=== PATIENT | male | born 1940 | race Caucasian/White ===

== ENCOUNTER 2018-03-21 01:02 | Inpatient (IN) | payer OTHER ==
[2018-03-21] VITALS (8 sets, daily range): BP systolic 124–150
[~2018-03-21] VITALS: Ht 177.8 cm; Wt 103.0 kg
[2018-03-21] MEDS ORDERED: NACL 0.9% 1,000 ML IV ONE (02:38)
[2018-03-21] MEDS ORDERED: DIPHENHYDRAMINE INJ 50 MG/ML VIAL IVP ONE (02:45)
[2018-03-21] MEDS ORDERED: MORPHINE 4 MG/ML INJ. SYRINGE IVP ONE (02:45)
[2018-03-21] MEDS ORDERED: ONDANSETRON HCL 4 MG/2 ML VIAL IVP ONE (02:45)
[2018-03-21 03:11] LABS: BASOPHILS % (AUTO) 0.2 % (0.0-2.0); HEMATOCRIT 37.8 % (36-54); HEMOGLOBIN 12.7 g/dL (14.0-18.0); LYMPHOCYTES # (AUTO) 0.8 K/uL (1.0-5.5); LYMPHOCYTES % (AUTO) 4.2 % (20.5-51.5); MEAN CORPUSCULAR HEMOGLOBIN 33 pg (27-31); MEAN CORPUSCULAR HGB CONC 34 % (32-36); MEAN CORPUSCULAR VOLUME 98 fL (79.0-98.0); MONOCYTES # (AUTO) 1.6 K/uL (0.0-1.0); MONOCYTES % (AUTO) 8.6 % (1.7-9.3); NEUTROPHILS # (AUTO) 16.2 K/uL (1.8-7.7); PLATELET COUNT (AUTO) 135 K/uL (130-430); RED BLOOD CELL COUNT(AUTO) 3.87 MIL/uL (4.2-6.2); RED CELL DISTRIBUTION WIDTH 14.6 % (9.0-15.0); WHITE BLOOD COUNT (AUTO) 18.6 K/uL (4.8-10.8)
[2018-03-21 03:20] LABS: INR 1.2 (0.80-1.20)
[2018-03-21 03:28] LABS: ANION GAP 8 (5-15); CALCIUM 8.3 mg/dL (8.4-11.0); CHLORIDE 101 mmol/L (98-107); GLUCOSE 168 mg/dL (70-99); POTASSIUM 3.6 mmol/L (3.5-5.1); SODIUM SERUM 137 mmol/L (136-145); UREA NITROGEN, BLOOD 14 mg/dL (8-21)
[2018-03-21 03:33] LABS: ALANINE AMINOTRANSFERASE 19 U/L (12-78); ALBUMIN 3.5 g/dL (3.4-4.8); ASPARTATE AMINOTRANSFERASE 13 U/L (10-37); TOTAL BILIRUBIN 0.7 mg/dL (0.0-1.0)
[2018-03-21] MEDS ORDERED: MAGN400T10 PO (04:56)
[2018-03-21] MEDS ORDERED: METF-305 PO (04:56)
[2018-03-21] MEDS ORDERED: FOLI-43 PO (04:56)
[2018-03-21] MEDS ORDERED: LIP40 PO (04:56)
[2018-03-21] MEDS ORDERED: TAMS-11 PO (04:56)
[2018-03-21] MEDS ORDERED: LATA2.5D6 OP (04:56)
[2018-03-21] MEDS ORDERED: PLA200 PO (04:56)
[2018-03-21] MEDS ORDERED: APIX5TAB PO (04:56)
[2018-03-21] MEDS ORDERED: CARV25TA55 PO (04:56)
[2018-03-21] MEDS ORDERED: OMEP20CA10 PO (04:56)
[2018-03-21] MEDS ORDERED: AMLO2.5T2 PO (04:56)
[2018-03-21] MEDS ORDERED: METH2.5T PO (04:56)
[2018-03-21] MEDS ORDERED: LISI40TA4 PO (04:56)
[2018-03-21] MEDS ORDERED: ISOS30TA6 PO (04:56)
[2018-03-21] MEDS ORDERED: DORZ10DR8 OP (04:56)
[2018-03-21 05:12] LABS: BILIRUBIN,URINE 1+ (NEGATIVE); CLARITY/URINE CLEAR (CLEAR); COLOR,URINE YELLOW (YELLOW); GLUCOSE,URINE NEGATIVE (NEGATIVE); KETONES,URINE NEGATIVE (NEGATIVE); LEUKOCYTE ESTERASE ,URINE 1+ (NEGATIVE); NITRITE, URINE NEGATIVE (NEGATIVE); PH,URINE 5.5 (5.0-8.0); PROTEIN URINE 1+ (NEGATIVE); UROBILINOGEN,URINE 0.2 (0.2-1.0)
[2018-03-21 05:13] LABS: BLOOD, URINE TRACE (NEGATIVE)
[2018-03-21 05:28] LABS: BACTERIA,URINE MODERATE /HPF (None Seen); MUCUS,URINE 1+ /LPF (None Seen); WBC,URINE 20-50 /HPF (0-3)
[2018-03-21] MEDS ORDERED: MORPHINE 2 MG/ML INJ. SYRINGE IVP ONE (06:15)
[2018-03-21] MEDS ORDERED: ONDANSETRON HCL 4 MG/2 ML VIAL IVP PRN (06:45)
[2018-03-21] MEDS ORDERED: D5W 1,000 ML IV PRN (06:53)
[2018-03-21] MEDS ORDERED: GLUCOSE 15 GM GEL (in 37.5 GM TUBE) PO PRN ×2 (07:00)
[2018-03-21] MEDS ORDERED: DEXTROSE 50% JECT 50 ML DISP.SYRIN IVP PRN ×2 (07:00)
[2018-03-21] MEDS ORDERED: INSULIN REGULAR, HUMAN 100 UNITS/ML, 10 ML VIAL (novoLIN R) SUBCUT PRN (07:00)
[2018-03-21] MEDS ORDERED: metroNIDAZOLE 500 mg/NS 100 ML IV ONE (07:32)
[2018-03-21] MEDS: cefTRIAXone 1 GM IVPB PREMIX 50 ML IV SCH (09:06)
[2018-03-21] MEDS: NACL 0.9% 1,000 ML IV SCH ×2 (09:09→23:35)
[2018-03-21] MEDS ORDERED: DIATR MEGLU/DIATRIZ SOD 30 ML SOLUTION PO ONE (11:30)
[2018-03-21 11:58] LABS: BASOPHILS # (AUTO) 0.1 K/uL (0.0-0.2); BASOPHILS % (AUTO) 0.4 % (0.0-2.0); EOSINOPHILS % (AUTO) 0.1 % (0.0-4.0); HEMATOCRIT 36.2 % (36-54); HEMOGLOBIN 12.3 g/dL (14.0-18.0); LYMPHOCYTES # (AUTO) 0.8 K/uL (1.0-5.5); LYMPHOCYTES % (AUTO) 4.3 % (20.5-51.5); MEAN CORPUSCULAR HEMOGLOBIN 34 pg (27-31); MEAN CORPUSCULAR HGB CONC 34 % (32-36); MEAN CORPUSCULAR VOLUME 98 fL (79.0-98.0); MONOCYTES # (AUTO) 1.2 K/uL (0.0-1.0); MONOCYTES % (AUTO) 6.2 % (1.7-9.3); NEUTROPHILS # (AUTO) 17.4 K/uL (1.8-7.7); PLATELET COUNT (AUTO) 118 K/uL (130-430); RED BLOOD CELL COUNT(AUTO) 3.68 MIL/uL (4.2-6.2); RED CELL DISTRIBUTION WIDTH 14.8 % (9.0-15.0); WHITE BLOOD COUNT (AUTO) 19.5 K/uL (4.8-10.8)
[2018-03-21 12:09] LABS: ALANINE AMINOTRANSFERASE 15 U/L (12-78); ALBUMIN 3.2 g/dL (3.4-4.8); ANION GAP 9 (5-15); ASPARTATE AMINOTRANSFERASE 12 U/L (10-37); CHLORIDE 101 mmol/L (98-107); CREATININE 1.19 mg/dL (0.55-1.30); GLUCOSE 161 mg/dL (70-99); LIPASE 93 U/L (73-393); SODIUM SERUM 137 mmol/L (136-145); TOTAL BILIRUBIN 0.7 mg/dL (0.0-1.0); UREA NITROGEN, BLOOD 12 mg/dL (8-21)
[2018-03-21] MEDS ORDERED: IOHEXOL 100 ML IV ONE (13:33)
[2018-03-21] MEDS: metroNIDAZOLE 500 mg/NS 100 ML IV SCH ×2 (15:42→21:36)
[2018-03-21] MEDS: MORPHINE 2 MG/ML INJ. SYRINGE IVP PRN ×2 (17:19→21:45)
[2018-03-21] MEDS: VANCOMYCIN HCL 125 MG CAPSULE PO SCH ×2 (17:24→21:43)
[2018-03-21] MEDS: HYDROXYCHLOROQUINE SULFATE 200 MG TABLET PO SCH (21:32)
[2018-03-21] MEDS: CARVEDILOL 25 MG TABLET (COREG) PO SCH (21:33)
[2018-03-21] MEDS: ATORVASTATIN 20 MG TABLET PO SCH (21:33)
[2018-03-21] MEDS: LATANOPROST 2.5 ML DROPS (XALATAN) OP SCH (21:34)
[2018-03-21] MEDS: DORZOLAMIDE 2% OPHTHALMIC SOLN 5ML OP SCH (21:35)
[2018-03-22] VITALS (7 sets, daily range): BP systolic 105–142
[2018-03-22] MEDS: MORPHINE 2 MG/ML INJ. SYRINGE IVP PRN ×3 (03:01→18:15)
[2018-03-22] MEDS: metroNIDAZOLE 500 mg/NS 100 ML IV SCH ×3 (05:23→21:12)
[2018-03-22 06:59] LABS: ALANINE AMINOTRANSFERASE 14 U/L (12-78); ALBUMIN 2.8 g/dL (3.4-4.8); ANION GAP 7 (5-15); ASPARTATE AMINOTRANSFERASE 12 U/L (10-37); CALCIUM 7.7 mg/dL (8.4-11.0); CHLORIDE 100 mmol/L (98-107); GLUCOSE 130 mg/dL (70-99); POTASSIUM 3.4 mmol/L (3.5-5.1); SODIUM SERUM 134 mmol/L (136-145); TOTAL BILIRUBIN 0.8 mg/dL (0.0-1.0); UREA NITROGEN, BLOOD 10 mg/dL (8-21)
[2018-03-22] MEDS ORDERED: POTASSIUM CHLORIDE 20 MEQ/PKT PACKET PO ONE (07:30)
[2018-03-22 07:32] LABS: BASOPHILS % (AUTO) 0.1 % (0.0-2.0); EOSINOPHILS % (AUTO) 0.2 % (0.0-4.0); HEMATOCRIT 34.3 % (36-54); HEMOGLOBIN 11.7 g/dL (14.0-18.0); LYMPHOCYTES # (AUTO) 0.7 K/uL (1.0-5.5); LYMPHOCYTES % (AUTO) 4.3 % (20.5-51.5); MEAN CORPUSCULAR HEMOGLOBIN 34 pg (27-31); MEAN CORPUSCULAR HGB CONC 34 % (32-36); MEAN CORPUSCULAR VOLUME 99 fL (79.0-98.0); MONOCYTES # (AUTO) 1.5 K/uL (0.0-1.0); MONOCYTES % (AUTO) 8.9 % (1.7-9.3); NEUTROPHILS % (AUTO) 86.5 % (40.0-70.0); RED BLOOD CELL COUNT(AUTO) 3.47 MIL/uL (4.2-6.2); RED CELL DISTRIBUTION WIDTH 15.4 % (9.0-15.0); WHITE BLOOD COUNT (AUTO) 17.2 K/uL (4.8-10.8)
[2018-03-22] MEDS: cefTRIAXone 1 GM IVPB PREMIX 50 ML IV SCH (09:02)
[2018-03-22] MEDS: VANCOMYCIN HCL 125 MG CAPSULE PO SCH ×4 (09:02→20:46)
[2018-03-22] MEDS: FOLIC ACID 1 MG TABLET PO SCH (09:02)
[2018-03-22] MEDS: amLODIPine BESYLATE 5 MG TABLET PO SCH (09:03)
[2018-03-22] MEDS: OMEPRAZOLE 20 MG CAPSULE.DR (PriLOSEC) PO SCH (09:03)
[2018-03-22] MEDS: HYDROXYCHLOROQUINE SULFATE 200 MG TABLET PO SCH ×2 (09:03→20:46)
[2018-03-22] MEDS: ISOSORBIDE MONONITRATE 30 MG TAB.ER.24H PO SCH (09:03)
[2018-03-22] MEDS: CARVEDILOL 25 MG TABLET (COREG) PO SCH ×2 (09:04→20:48)
[2018-03-22] MEDS: MAGNESIUM OXIDE 400 MG TABLET PO SCH (09:04)
[2018-03-22] MEDS: LISINOPRIL 20 MG TABLET PO SCH (09:04)
[2018-03-22] MEDS: DORZOLAMIDE 2% OPHTHALMIC SOLN 5ML OP SCH ×2 (09:06→20:47)
[2018-03-22] MEDS: NACL 0.9% 1,000 ML IV SCH ×2 (09:09→21:13)
[2018-03-22 10:15] LABS: PLATELET COUNT (AUTO) 96 K/uL (130-430)
[2018-03-22] MEDS: ACETAMINOPHEN 325 MG TABLET PO PRN ×2 (11:35→21:11)
[2018-03-22] MEDS: ATORVASTATIN 20 MG TABLET PO SCH (20:46)
[2018-03-22] MEDS: LATANOPROST 2.5 ML DROPS (XALATAN) OP SCH (20:47)
[2018-03-22] MEDS ORDERED: MORPHINE 4 MG/ML INJ. SYRINGE IVP ONE (21:30)
[2018-03-23] MEDS: metroNIDAZOLE 500 mg/NS 100 ML IV SCH (06:26)
[2018-03-23 06:34] LABS: HEMATOCRIT 34.1 % (36-54); HEMOGLOBIN 11.6 g/dL (14.0-18.0); MEAN CORPUSCULAR HEMOGLOBIN 33 pg (27-31); MEAN CORPUSCULAR HGB CONC 34 % (32-36); MEAN CORPUSCULAR VOLUME 98 fL (79.0-98.0); PLATELET COUNT (AUTO) 96 K/uL (130-430); RED BLOOD CELL COUNT(AUTO) 3.48 MIL/uL (4.2-6.2); RED CELL DISTRIBUTION WIDTH 14.9 % (9.0-15.0); WHITE BLOOD COUNT (AUTO) 10.9 K/uL (4.8-10.8)
[2018-03-23] MEDS: MORPHINE 2 MG/ML INJ. SYRINGE IVP PRN ×2 (06:42→13:10)
[2018-03-23 06:56] LABS: ALANINE AMINOTRANSFERASE 16 U/L (12-78); ALBUMIN 2.8 g/dL (3.4-4.8); ANION GAP 5 (5-15); ASPARTATE AMINOTRANSFERASE 14 U/L (10-37); CALCIUM 7.8 mg/dL (8.4-11.0); CHLORIDE 104 mmol/L (98-107); CREATININE 1.02 mg/dL (0.55-1.30); GLUCOSE 159 mg/dL (70-99); POTASSIUM 4.1 mmol/L (3.5-5.1); SODIUM SERUM 137 mmol/L (136-145); TOTAL BILIRUBIN 0.7 mg/dL (0.0-1.0); UREA NITROGEN, BLOOD 11 mg/dL (8-21)
[2018-03-23 07:51] VITALS: BP_SYST 155
[2018-03-23] MEDS ORDERED: MORPHINE 4 MG/ML INJ. SYRINGE IVP ONE (08:00)
[2018-03-23] MEDS: HYDROXYCHLOROQUINE SULFATE 200 MG TABLET PO SCH ×2 (08:53→22:02)
[2018-03-23] MEDS: CARVEDILOL 25 MG TABLET (COREG) PO SCH ×2 (08:53→22:02)
[2018-03-23] MEDS: OMEPRAZOLE 20 MG CAPSULE.DR (PriLOSEC) PO SCH (08:54)
[2018-03-23] MEDS: ISOSORBIDE MONONITRATE 30 MG TAB.ER.24H PO SCH (08:54)
[2018-03-23] MEDS: LISINOPRIL 20 MG TABLET PO SCH (08:54)
[2018-03-23] MEDS: MAGNESIUM OXIDE 400 MG TABLET PO SCH (08:55)
[2018-03-23] MEDS: amLODIPine BESYLATE 5 MG TABLET PO SCH (08:55)
[2018-03-23] MEDS: FOLIC ACID 1 MG TABLET PO SCH (08:55)
[2018-03-23] MEDS: DORZOLAMIDE 2% OPHTHALMIC SOLN 5ML OP SCH ×2 (08:56→22:03)
[2018-03-23] MEDS: cefTRIAXone 1 GM IVPB PREMIX 50 ML IV SCH (08:57)
[2018-03-23] MEDS: VANCOMYCIN HCL 125 MG CAPSULE PO SCH (09:07)
[2018-03-23] MEDS: POLYETHYLENE GLYCOL 3350, 17 GM/ POWD.PACK PO SCH (09:07)
[2018-03-23] MEDS ORDERED: MORPHINE 4 MG/ML INJ. SYRINGE IVP PRN ×2 (10:45→11:00)
[2018-03-23] MEDS: ALBUTEROL SULFATE 0.083% 2.5 MG/3 ML VIAL.NEB INH PRN (11:21)
[2018-03-23] MEDS: NACL 0.9% 1,000 ML IV SCH (12:04)
[2018-03-23 12:21] VITALS: BP_SYST 139
[2018-03-23 12:55] LABS: BAND % (MANUAL) 1 % (0-6); BASOPHILS % (MANUAL) 0 % (0-2); EOSINOPHILS % (MANUAL) 0 % (0-7); LYMPHOCYTES % (MANUAL) 2 % (20-46); MONOCYTES % (MANUAL) 6 % (0-11)
[2018-03-23] MEDS: metroNIDAZOLE 500 MG TABLET PO SCH ×2 (13:49→22:02)
[2018-03-23 17:07] VITALS: BP_SYST 147
[2018-03-23 19:47] VITALS: BP_SYST 148
[2018-03-23] MEDS: ATORVASTATIN 20 MG TABLET PO SCH (22:02)
[2018-03-23] MEDS: LATANOPROST 2.5 ML DROPS (XALATAN) OP SCH (22:03)
[2018-03-24 00:13] VITALS: BP_SYST 145
[2018-03-24] MEDS: NACL 0.9% 1,000 ML IV SCH (01:24)
[2018-03-24] MEDS: MORPHINE 2 MG/ML INJ. SYRINGE IVP PRN (02:25)
[2018-03-24] MEDS: metroNIDAZOLE 500 MG TABLET PO SCH (06:30)
[2018-03-24] MEDS: POLYETHYLENE GLYCOL 3350, 17 GM/ POWD.PACK PO SCH (08:40)
[2018-03-24] MEDS: HYDROXYCHLOROQUINE SULFATE 200 MG TABLET PO SCH (08:40)
[2018-03-24] MEDS: MAGNESIUM OXIDE 400 MG TABLET PO SCH (08:41)
[2018-03-24] MEDS: cefTRIAXone 1 GM IVPB PREMIX 50 ML IV SCH (08:41)
[2018-03-24] MEDS: FOLIC ACID 1 MG TABLET PO SCH (08:42)
[2018-03-24] MEDS: OMEPRAZOLE 20 MG CAPSULE.DR (PriLOSEC) PO SCH (08:42)
[2018-03-24] MEDS: LISINOPRIL 20 MG TABLET PO SCH (08:46)
[2018-03-24] MEDS: ISOSORBIDE MONONITRATE 30 MG TAB.ER.24H PO SCH (08:47)
[2018-03-24] MEDS: amLODIPine BESYLATE 5 MG TABLET PO SCH (08:48)
[2018-03-24] MEDS: CARVEDILOL 25 MG TABLET (COREG) PO SCH (08:48)
[2018-03-24] MEDS: DORZOLAMIDE 2% OPHTHALMIC SOLN 5ML OP SCH (08:49)
[2018-03-24 08:58] VITALS: BP_SYST 172
[2018-03-24] MEDS: ALBUTEROL SULFATE 0.083% 2.5 MG/3 ML VIAL.NEB INH PRN (09:03)
[2018-03-24 10:29] LABS: HEMOGLOBIN A1C 6.1 % (4.8-5.6)
[2018-03-24 13:32] LABS: % FREE PSA 45.8 % (.); FREE PSA 2.06 ng/mL
[2018-03-24 13:35] VITALS: BP_SYST 148
[2018-03-25 15:55] LABS: PROSTATE SPECIFIC AG TOTAL 4.5 ng/mL (0.0-4.0)
== END 2018-03-24 14:15 | disposition home or self-care (01) | DRG 872 ==
LOC: SED 01:02 → SMU 05:06
PROVIDERS: ADMIT Internal Medicine; ATTEND Internal Medicine
DX: A41.9 Sepsis, unspecified organism (principal); N30.10 Interstitial cystitis (chronic) without hematuria; E11.9 Type 2 diabetes mellitus without complications; I10 Essential (primary) hypertension; J44.9 Chronic obstructive pulmonary disease, unspecified; H40.9 Unspecified glaucoma; E87.6 Hypokalemia; E78.5 Hyperlipidemia, unspecified; G40.909 Epilepsy, unspecified, not intractable, without status epilepticus; I48.91 Unspecified atrial fibrillation; M06.9 Rheumatoid arthritis, unspecified; N40.0 Benign prostatic hyperplasia without lower urinary tract symptoms; D89.9 Disorder involving the immune mechanism, unspecified; B96.20 Unspecified Escherichia coli [E. coli] as the cause of diseases classified elsewhere; K52.89 Other specified noninfective gastroenteritis and colitis; I25.10 Atherosclerotic heart disease of native coronary artery without angina pectoris; Z86.73 Personal history of transient ischemic attack (TIA), and cerebral infarction without residual deficits; Z79.899 Other long term (current) drug therapy; Z87.440 Personal history of urinary (tract) infections; Z79.84 Long term (current) use of oral hypoglycemic drugs
CPT/HCPCS: 36415; 71045; 76700-TC; 76770; 80053; 81000-TC; 83036; 83605; 83690-TC; 84153; 85007; 85025; 85027; 85610-TC; 85651-TC; 85730-TC; 87040-TC; 87086; 87186-TC; 87230-TC; 89055; 93005; 94640; 96361; 96374; 96375; 99285; J0696; J1200; J1815; J2270; J2405; J3490; J7030; J7613; J8610; Q9964; Q9967